=== PATIENT | female | born 1955 | race Caucasian/White ===

== ENCOUNTER 2019-07-12 21:21 | Inpatient (IN) | payer OTHER, MEDICARE ==
[~2019-07-12] VITALS: Ht 152.4 cm; Wt 115.7 kg
[2019-07-12] MEDS ORDERED: ONDANSETRON 4 MG/2 ML VIAL IV ONE (21:30)
[2019-07-12] MEDS ORDERED: IV NORMAL SALINE 1000 ML BAG IV ONE (21:30)
[2019-07-12] MEDS ORDERED: HYDROMORPHONE 1 MG/1 ML DISP.SYRIN IV ONE (21:30)
[2019-07-12] MEDS ORDERED: HYDROMORPHONE 1 MG/1 ML DISP.SYRIN ONE (21:45)
[2019-07-12] MEDS ORDERED: ONDANSETRON 4 MG/2 ML VIAL ONE (21:45)
[2019-07-12 21:47] LABS: BASOPHILS % (AUTO) 0.1 % (0.0-2.0); EOSINOPHILS % (AUTO) 0.1 % (0.0-7.0); HEMATOCRIT 52.9 % (31.2-41.9); HEMOGLOBIN 17.3 g/dL (10.9-14.3); LYMPHOCYTES # (AUTO) 0.5 K/uL (20.0-40.0); LYMPHOCYTES % (AUTO) 1.8 % (20.5-51.5); MEAN CORPUSCULAR HEMOGLOBIN 29.5 uug (24.7-32.8); MEAN CORPUSCULAR HGB CONC 33 g/dL (32.3-35.6); MONOCYTES # (AUTO) 0.5 K/uL (2.0-10.0); NEUTROPHILS # (AUTO) 25.8 K/uL (1.8-8.9); PLATELET COUNT (AUTO) 294 K/uL (179-408); RED BLOOD CELL COUNT(AUTO) 5.87 MIL/uL (3.63-4.92); WHITE BLOOD COUNT (AUTO) 26.8 K/uL (3.8-11.8)
[2019-07-12 21:54] LABS: CARBON DIOXIDE 24 mmol/L (21-32); CHLORIDE 102 mmol/L (98-107); CREATININE 1.3 mg/dL (0.6-1.3); GLUCOSE 167 mg/dL (74-106); POTASSIUM 3.6 mmol/L (3.5-5.1); UREA NITROGEN, BLOOD 14 mg/dL (7-18)
[2019-07-12 22:00] LABS: ALANINE AMINOTRANSFERASE 133 U/L (14-59); ALKALINE PHOSPHATASE 102 U/L (50-136); ASPARTATE AMINOTRANSFERASE 150 U/L (15-37); BILIRUBIN,DIRECT 1.5 mg/dL (0.0-0.2); BILIRUBIN,TOTAL 2.2 mg/dL (0.2-1.0); TOTAL PROTEIN, SERUM 8.2 g/dL (6.4-8.2)
[2019-07-12 22:16] LABS: LIPASE > 6000 U/L (73-393)
[2019-07-12] MEDS ORDERED: LEVOFLOXACIN 750 MG/D5W 150 ML PIGGYBACK IV ONE (22:30)
[2019-07-12] MEDS ORDERED: METRONIDAZOLE 500 MG/NS 100 ML PIGGYBACK IV ONE (22:30)
[2019-07-12] MEDS ORDERED: LEVOFLOXACIN 750MG/D5W 150 ML IV ONE (22:50)
[2019-07-12] MEDS ORDERED: METRONIDAZOLE 500 MG/NS 100ML 100 ML IV ONE (22:50)
[2019-07-13] MEDS ORDERED: IV NORMAL SALINE 1000 ML BAG IV ONE (00:15)
[2019-07-13] MEDS ORDERED: HYDROMORPHONE 1 MG/1 ML DISP.SYRIN IV ONE (00:30)
[2019-07-13] MEDS ORDERED: HYDROMORPHONE 1 MG/1 ML DISP.SYRIN ONE (00:46)
[2019-07-13] MEDS: ENOXAPARIN SODIUM 40 MG/0.4 ML DISP.SYRIN SQ SCH ×2 (03:00→09:33)
[2019-07-13] MEDS ORDERED: Z GUARD REMEDY PASTE 57 GM TUBE TOP PRN (03:00)
[2019-07-13] MEDS: IV NS 1000 ML 1,000 ML IV PRN ×2 (03:21→18:42)
[2019-07-13 04:00] VITALS: BP 149/89
[2019-07-13] MEDS ORDERED: MEROPENEM 1 G VIAL IV ONE (05:45)
[2019-07-13] MEDS ORDERED: MEROPENEM 1 G in IV NORMAL SALINE 100 ML IV SCH ×3 (06:00→18:00)
[2019-07-13 06:59] LABS: BASOPHILS % (AUTO) 0.1 % (0.0-2.0); HEMATOCRIT 49.5 % (31.2-41.9); HEMOGLOBIN 16.4 g/dL (10.9-14.3); LYMPHOCYTES # (AUTO) 0.5 K/uL (20.0-40.0); LYMPHOCYTES % (AUTO) 1.9 % (20.5-51.5); MEAN CORPUSCULAR HEMOGLOBIN 30.1 uug (24.7-32.8); MEAN CORPUSCULAR HGB CONC 33 g/dL (32.3-35.6); MEAN CORPUSCULAR VOLUME 90.9 fL (75.5-95.3); MONOCYTES # (AUTO) 0.7 K/uL (2.0-10.0); MONOCYTES % (AUTO) 2.4 % (0.0-11.0); NEUTROPHILS # (AUTO) 26.7 K/uL (1.8-8.9); NEUTROPHILS % (AUTO) 95.6 % (38.5-71.5); PLATELET COUNT (AUTO) 259 K/uL (179-408); RED BLOOD CELL COUNT(AUTO) 5.44 MIL/uL (3.63-4.92); WHITE BLOOD COUNT (AUTO) 27.9 K/uL (3.8-11.8)
[2019-07-13 07:42] LABS: ALANINE AMINOTRANSFERASE 95 U/L (14-59); ALKALINE PHOSPHATASE 71 U/L (50-136); ASPARTATE AMINOTRANSFERASE 84 U/L (15-37); BILIRUBIN,TOTAL 1.6 mg/dL (0.2-1.0); CARBON DIOXIDE 23 mmol/L (21-32); CHLORIDE 103 mmol/L (98-107); CHOLESTEROL 112 mg/dL (<200); CREATININE 1.2 mg/dL (0.6-1.3); GLUCOSE 164 mg/dL (74-106); HDL CHOLESTEROL 35 mg/dL (40-60); MAGNESIUM 1.6 mg/dL (1.8-2.4); PHOSPHOROUS 3.7 mg/dL (2.5-4.9); POTASSIUM 3.6 mmol/L (3.5-5.1); TOTAL PROTEIN, SERUM 7.1 g/dL (6.4-8.2); TRIGLYCERIDES 95 MG/DL (30-150); UREA NITROGEN, BLOOD 20 mg/dL (7-18)
[2019-07-13] MEDS: MORPHINE SULFATE 2 MG/1 ML DISP.SYRIN IV PRN ×2 (08:24→21:07)
[2019-07-13 08:50] LABS: LIPASE > 6000 U/L (73-393)
[2019-07-13] MEDS: MAGNESIUM SULFATE/D5W 100 ML IV SCH ×2 (09:54→11:31)
[2019-07-13 11:59] VITALS: BP 129/84
[2019-07-13] MEDS ORDERED: DEXTROSE 50% 50 ML DISP.SYRIN IV PRN (12:45)
[2019-07-13] MEDS: MEROPENEM 1 G in IV NORMAL SALINE 100 ML IV SCH ×2 (14:29→21:01)
[2019-07-13 15:33] VITALS: BP 115/73
[2019-07-13] MEDS: BLOOD SUGAR DIAGNOSTIC 1 EACH STRIP VI SCH ×2 (17:28→20:21)
[2019-07-13] MEDS: ALBUTEROL SULFATE 2.5 MG/3 ML NEBU NEB PRN (18:04)
[2019-07-13] MEDS: ONDANSETRON 4 MG/2 ML VIAL IV PRN (20:13)
[2019-07-13 20:19] VITALS: BP 115/80
[2019-07-13] MEDS: INSULIN REGULAR, HUMAN 300 UNIT/3 ML VIAL SQ PRN (20:25)
[2019-07-13 21:00] LABS: *BILIRUBIN,URIN 1+ (NEGATIVE); *BLOOD, URINE NEGATIVE (NEGATIVE); *CLARITY,URINE SLIGHTLY CLOUDY (CLEAR); *COLOR,URINE DARK YELLOW (YELLOW); *KETONES,URINE TRACE (NEGATIVE); LEUKOCYTE ESTERASE ,URINE NEGATIVE (NEGATIVE); NITRITE, URINE NEGATIVE (NEGATIVE); PH,URINE 5.5 (5.0-8.0); UGLUCOSE NEGATIVE (NEGATIVE)
[2019-07-13 21:14] LABS: RBC,URINE 0-3 /HPF (0-3); WBC,URINE 0-3 /HPF (0-3)
[2019-07-13 21:15] LABS: BACTERIA,URINE MODERATE /HPF (NONE SEEN); SQUAMOUS EPITHELIAL CELL,UR MANY /HPF (NONE SEEN)
[2019-07-14 00:46] VITALS: BP 128/79
[2019-07-14] MEDS: MORPHINE SULFATE 4 MG/1 ML DISP.SYRIN IV PRN ×4 (02:09→21:24)
[2019-07-14 04:00] VITALS: BP 120/92
[2019-07-14] MEDS: ALBUTEROL SULFATE 2.5 MG/3 ML NEBU NEB PRN ×2 (06:08→16:02)
[2019-07-14] MEDS: MEROPENEM 1 G in IV NORMAL SALINE 100 ML IV SCH ×3 (06:10→22:08)
[2019-07-14] MEDS: BLOOD SUGAR DIAGNOSTIC 1 EACH STRIP VI SCH ×4 (06:55→21:25)
[2019-07-14 07:08] LABS: BILIRUBIN,DIRECT 0.7 mg/dL (0.0-0.2); BILIRUBIN,TOTAL 1.3 mg/dL (0.2-1.0); CREATININE 0.9 mg/dL (0.6-1.3); MAGNESIUM 2.3 mg/dL (1.8-2.4); PHOSPHOROUS 2.8 mg/dL (2.5-4.9); POTASSIUM 3.7 mmol/L (3.5-5.1); TOTAL PROTEIN, SERUM 7.1 g/dL (6.4-8.2)
[2019-07-14 07:22] LABS: BASOPHILS # (AUTO) 0.1 K/uL (0.0-8.0); BASOPHILS % (AUTO) 0.4 % (0.0-2.0); EOSINOPHILS % (AUTO) 0.1 % (0.0-7.0); HEMATOCRIT 47.3 % (31.2-41.9); HEMOGLOBIN 15.7 g/dL (10.9-14.3); LYMPHOCYTES # (AUTO) 1.2 K/uL (20.0-40.0); MEAN CORPUSCULAR HEMOGLOBIN 30.1 uug (24.7-32.8); MEAN CORPUSCULAR HGB CONC 33 g/dL (32.3-35.6); MONOCYTES # (AUTO) 0.9 K/uL (2.0-10.0); NEUTROPHILS # (AUTO) 27.8 K/uL (1.8-8.9); NEUTROPHILS % (AUTO) 92.5 % (38.5-71.5); PLATELET COUNT (AUTO) 232 K/uL (179-408)
[2019-07-14 07:47] LABS: WHITE BLOOD COUNT (AUTO) 30.1 K/uL (3.8-11.8)
[2019-07-14] MEDS: ENOXAPARIN SODIUM 40 MG/0.4 ML DISP.SYRIN SQ SCH (08:57)
[2019-07-14 09:30] LABS: BAND % (MANUAL) 8 % (0-10); LYMPHOCYTES % (MANUAL) 6 % (20-40); MONOCYTES % (MANUAL) 3 % (2-10); NEUTROPHILS % (MANUAL) 83 % (42-75)
[2019-07-14] MEDS: IV NS 1000 ML 1,000 ML IV PRN (11:23)
[2019-07-14 11:50] VITALS: BP 128/93
[2019-07-14 15:16] VITALS: BP 148/96
[2019-07-14 20:45] VITALS: BP 141/91
[2019-07-14] MEDS: ONDANSETRON 4 MG/2 ML VIAL IV PRN (21:24)
[2019-07-15] VITALS: BP 135/82
[2019-07-15] MEDS: MORPHINE SULFATE 4 MG/1 ML DISP.SYRIN IV PRN ×4 (01:02→20:59)
[2019-07-15] MEDS: IV NS 1000 ML 1,000 ML IV PRN ×3 (02:20→21:01)
[2019-07-15] MEDS: ALBUTEROL SULFATE 2.5 MG/3 ML NEBU NEB PRN ×2 (03:00→18:02)
[2019-07-15 04:00] VITALS: BP 150/92
[2019-07-15] MEDS: MEROPENEM 1 G in IV NORMAL SALINE 100 ML IV SCH ×3 (05:21→21:10)
[2019-07-15] MEDS: BLOOD SUGAR DIAGNOSTIC 1 EACH STRIP VI SCH ×4 (06:41→20:43)
[2019-07-15] MEDS: ENOXAPARIN SODIUM 40 MG/0.4 ML DISP.SYRIN SQ SCH (08:08)
[2019-07-15 08:31] LABS: BASOPHILS # (AUTO) 0.1 K/uL (0.0-8.0); BASOPHILS % (AUTO) 0.5 % (0.0-2.0); EOSINOPHILS # (AUTO) 0.1 K/uL (0.0-0.7); EOSINOPHILS % (AUTO) 0.3 % (0.0-7.0); HEMATOCRIT 40.2 % (31.2-41.9); HEMOGLOBIN 13.3 g/dL (10.9-14.3); LYMPHOCYTES # (AUTO) 1.3 K/uL (20.0-40.0); LYMPHOCYTES % (AUTO) 5.1 % (20.5-51.5); MEAN CORPUSCULAR HEMOGLOBIN 29.9 uug (24.7-32.8); MEAN CORPUSCULAR HGB CONC 33 g/dL (32.3-35.6); MEAN CORPUSCULAR VOLUME 90.4 fL (75.5-95.3); MONOCYTES # (AUTO) 0.8 K/uL (2.0-10.0); NEUTROPHILS # (AUTO) 23.9 K/uL (1.8-8.9); NEUTROPHILS % (AUTO) 91.1 % (38.5-71.5); PLATELET COUNT (AUTO) 205 K/uL (179-408); RED BLOOD CELL COUNT(AUTO) 4.44 MIL/uL (3.63-4.92); WHITE BLOOD COUNT (AUTO) 26.2 K/uL (3.8-11.8)
[2019-07-15 08:48] LABS: CREATININE 0.8 mg/dL (0.6-1.3); MAGNESIUM 2.3 mg/dL (1.8-2.4); PHOSPHOROUS 1.7 mg/dL (2.5-4.9)
[2019-07-15 09:47] LABS: BAND % (MANUAL) 5 % (0-10); LYMPHOCYTES % (MANUAL) 7 % (20-40); MONOCYTES % (MANUAL) 6 % (2-10); NEUTROPHILS % (MANUAL) 82 % (42-75)
[2019-07-15] MEDS: POTASSIUM PHOSPHATE MM 5 MMOL in IV DEXTROSE 5% 100 ML IV SCH ×2 (11:37→14:10)
[2019-07-15 11:46] VITALS: BP 159/97
[2019-07-15] MEDS ORDERED: BISACODYL 10 MG SUPP.RECT RC PRN (12:45)
[2019-07-15] MEDS ORDERED: MAGNESIUM HYDROXIDE 30 ML LIQUID UDC PO PRN (12:45)
[2019-07-15] MEDS: methylPREDNISolone SOD SUCC 40 MG/ML VIAL IV SCH ×2 (13:12→20:43)
[2019-07-15 16:20] VITALS: BP 158/87
[2019-07-15] MEDS ORDERED: SWABABLE VALVE TRANSFER SET EA MC ONE (16:57)
[2019-07-15] MEDS ORDERED: IV NORMAL SALINE 250 ML IV ONE (16:58)
[2019-07-15] MEDS ORDERED: IOHEXOL 350 100 ML INFUS..BTL ONE (16:58)
[2019-07-15] MEDS ORDERED: BENA5TAB5 PO (17:16)
[2019-07-15] MEDS ORDERED: HYDR25TA4 PO (17:17)
[2019-07-15] MEDS ORDERED: ALLO300T2 PO (17:18)
[2019-07-15] MEDS ORDERED: MONT10TA22 PO (17:18)
[2019-07-15] MEDS ORDERED: PARO20TA7 PO (17:19)
[2019-07-15] MEDS ORDERED: METF-494 PO (17:20)
[2019-07-15] MEDS ORDERED: PANT40TA4 PO (17:20)
[2019-07-15] MEDS ORDERED: TIOT18CA3 IH (17:22)
[2019-07-15] MEDS ORDERED: FLUT1DIS29 IH (17:23)
[2019-07-15 17:33] LABS: BILIRUBIN,DIRECT 0.5 mg/dL (0.0-0.2); BILIRUBIN,TOTAL 0.9 mg/dL (0.2-1.0); TOTAL PROTEIN, SERUM 7.1 g/dL (6.4-8.2)
[2019-07-15 17:34] LABS: BILIRUBIN,TOTAL 0.9 mg/dL (0.2-1.0)
[2019-07-15 17:38] LABS: BILIRUBIN,DIRECT 0.5 mg/dL (0.0-0.2)
[2019-07-15 20:00] VITALS: BP 164/97
[2019-07-15] MEDS: DOCUSATE SODIUM 100 MG CAPSULE PO SCH (20:44)
[2019-07-15] MEDS: CLONIDINE HCL 0.1 MG TABLET PO PRN (20:45)
[2019-07-15] MEDS: INSULIN REGULAR, HUMAN 300 UNIT/3 ML VIAL SQ PRN (20:46)
[2019-07-15 22:00] VITALS: BP 136/88
[2019-07-16] VITALS: BP 179/105
[2019-07-16 01:00] VITALS: BP 153/93
[2019-07-16 04:00] VITALS: BP 155/99
[2019-07-16] MEDS: IV NS 1000 ML 1,000 ML IV PRN (05:07)
[2019-07-16] MEDS: MEROPENEM 1 G in IV NORMAL SALINE 100 ML IV SCH ×3 (05:07→21:10)
[2019-07-16] MEDS: ALBUTEROL SULFATE 2.5 MG/3 ML NEBU NEB PRN (06:20)
[2019-07-16] MEDS: BLOOD SUGAR DIAGNOSTIC 1 EACH STRIP VI SCH ×4 (06:25→20:58)
[2019-07-16 06:35] LABS: BASOPHILS % (AUTO) 0.1 % (0.0-2.0); HEMATOCRIT 37.9 % (31.2-41.9); HEMOGLOBIN 12.3 g/dL (10.9-14.3); LYMPHOCYTES # (AUTO) 1.1 K/uL (20.0-40.0); LYMPHOCYTES % (AUTO) 4.5 % (20.5-51.5); MEAN CORPUSCULAR HEMOGLOBIN 29.1 uug (24.7-32.8); MEAN CORPUSCULAR HGB CONC 33 g/dL (32.3-35.6); MEAN CORPUSCULAR VOLUME 89.4 fL (75.5-95.3); MONOCYTES # (AUTO) 0.6 K/uL (2.0-10.0); MONOCYTES % (AUTO) 2.4 % (0.0-11.0); NEUTROPHILS # (AUTO) 22.3 K/uL (1.8-8.9); PLATELET COUNT (AUTO) 227 K/uL (179-408); RED BLOOD CELL COUNT(AUTO) 4.24 MIL/uL (3.63-4.92)
[2019-07-16 06:46] LABS: CREATININE 0.6 mg/dL (0.6-1.3); MAGNESIUM 2.3 mg/dL (1.8-2.4); PHOSPHOROUS 1.9 mg/dL (2.5-4.9); POTASSIUM 3.9 mmol/L (3.5-5.1)
[2019-07-16 07:33] LABS: BAND % (MANUAL) 7 % (0-10); LYMPHOCYTES % (MANUAL) 5 % (20-40); MONOCYTES % (MANUAL) 7 % (2-10)
[2019-07-16 07:34] LABS: NEUTROPHILS % (MANUAL) 81 % (42-75)
[2019-07-16] MEDS: methylPREDNISolone SOD SUCC 40 MG/ML VIAL IV SCH ×2 (08:45→21:00)
[2019-07-16] MEDS: INSULIN REGULAR, HUMAN 300 UNIT/3 ML VIAL SQ PRN ×4 (08:54→20:58)
[2019-07-16] MEDS: ENOXAPARIN SODIUM 40 MG/0.4 ML DISP.SYRIN SQ SCH (08:55)
[2019-07-16] MEDS: DOCUSATE SODIUM 100 MG CAPSULE PO SCH ×2 (09:00→20:52)
[2019-07-16] MEDS: CLONIDINE HCL 0.1 MG TABLET PO PRN (11:43)
[2019-07-16 11:52] VITALS: BP 171/96
[2019-07-16 12:06] LABS: BILIRUBIN,DIRECT 0.2 mg/dL (0.0-0.2); BILIRUBIN,TOTAL 0.4 mg/dL (0.2-1.0)
[2019-07-16] MEDS ORDERED: NEUTRA PHOS PACKET PO ONE (15:45)
[2019-07-16] MEDS: ALLOPURINOL 300 MG TABLET PO SCH (16:06)
[2019-07-16] MEDS: PAROXETINE HCL 20 MG TABLET PO SCH (16:06)
[2019-07-16] MEDS: METFORMIN XR 500 MG TAB.SR.24H PO SCH (16:06)
[2019-07-16] MEDS: BENAZEPRIL HCL 5 MG TABLET PO SCH (16:07)
[2019-07-16] MEDS: HYDROCHLOROTHIAZIDE 25 MG TABLET PO SCH (16:07)
[2019-07-16] MEDS: MORPHINE SULFATE 4 MG/1 ML DISP.SYRIN IV PRN ×2 (16:09→22:09)
[2019-07-16] MEDS: WIXELA IH SCH (17:35)
[2019-07-16 19:30] VITALS: BP 122/99
[2019-07-17] MEDS: MORPHINE SULFATE 4 MG/1 ML DISP.SYRIN IV PRN ×3 (01:47→20:24)
[2019-07-17] MEDS: IV NS 1000 ML 1,000 ML IV PRN ×3 (05:12→23:39)
[2019-07-17] MEDS: MEROPENEM 1 G in IV NORMAL SALINE 100 ML IV SCH ×3 (05:13→21:42)
[2019-07-17] MEDS: CLONIDINE HCL 0.1 MG TABLET PO PRN ×2 (05:17→15:53)
[2019-07-17 05:29] VITALS: BP 161/89
[2019-07-17] MEDS: ALBUTEROL SULFATE 2.5 MG/3 ML NEBU NEB PRN (05:38)
[2019-07-17] MEDS: BLOOD SUGAR DIAGNOSTIC 1 EACH STRIP VI SCH ×4 (06:33→20:33)
[2019-07-17 07:09] LABS: BASOPHILS # (AUTO) 0.1 K/uL (0.0-8.0); BASOPHILS % (AUTO) 0.4 % (0.0-2.0); HEMATOCRIT 36.9 % (31.2-41.9); HEMOGLOBIN 12.1 g/dL (10.9-14.3); LYMPHOCYTES # (AUTO) 1.7 K/uL (20.0-40.0); LYMPHOCYTES % (AUTO) 7.6 % (20.5-51.5); MEAN CORPUSCULAR HEMOGLOBIN 29.4 uug (24.7-32.8); MEAN CORPUSCULAR HGB CONC 33 g/dL (32.3-35.6); MEAN CORPUSCULAR VOLUME 89.2 fL (75.5-95.3); MONOCYTES # (AUTO) 1.2 K/uL (2.0-10.0); MONOCYTES % (AUTO) 5.2 % (0.0-11.0); NEUTROPHILS # (AUTO) 19.9 K/uL (1.8-8.9); NEUTROPHILS % (AUTO) 86.8 % (38.5-71.5); PLATELET COUNT (AUTO) 247 K/uL (179-408); RED BLOOD CELL COUNT(AUTO) 4.13 MIL/uL (3.63-4.92); WHITE BLOOD COUNT (AUTO) 22.9 K/uL (3.8-11.8)
[2019-07-17 07:16] LABS: CREATININE 0.6 mg/dL (0.6-1.3); POTASSIUM 3.7 mmol/L (3.5-5.1)
[2019-07-17 07:21] LABS: BILIRUBIN,TOTAL 0.4 mg/dL (0.2-1.0); MAGNESIUM 2.2 mg/dL (1.8-2.4); PHOSPHOROUS 2.8 mg/dL (2.5-4.9); TOTAL PROTEIN, SERUM 6.4 g/dL (6.4-8.2)
[2019-07-17 07:42] LABS: BAND % (MANUAL) 2 % (0-10); LYMPHOCYTES % (MANUAL) 7 % (20-40); MONOCYTES % (MANUAL) 5 % (2-10); NEUTROPHILS % (MANUAL) 86 % (42-75)
[2019-07-17] MEDS: INSULIN REGULAR, HUMAN 300 UNIT/3 ML VIAL SQ PRN ×2 (08:11→17:05)
[2019-07-17] MEDS: DOCUSATE SODIUM 100 MG CAPSULE PO SCH ×2 (09:00→21:00)
[2019-07-17] MEDS: WIXELA IH SCH ×2 (09:43→17:03)
[2019-07-17] MEDS: ENOXAPARIN SODIUM 40 MG/0.4 ML DISP.SYRIN SQ SCH (09:45)
[2019-07-17] MEDS: MONTELUKAST SODIUM 10 MG TABLET PO SCH (09:46)
[2019-07-17] MEDS: METFORMIN XR 500 MG TAB.SR.24H PO SCH (09:46)
[2019-07-17] MEDS: PANTOPRAZOLE SODIUM 40 MG TABLET.DR PO SCH (09:46)
[2019-07-17] MEDS: ALLOPURINOL 300 MG TABLET PO SCH (09:52)
[2019-07-17] MEDS: BENAZEPRIL HCL 5 MG TABLET PO SCH (09:52)
[2019-07-17] MEDS: HYDROCHLOROTHIAZIDE 25 MG TABLET PO SCH (09:53)
[2019-07-17] MEDS: PAROXETINE HCL 20 MG TABLET PO SCH (09:53)
[2019-07-17] MEDS: methylPREDNISolone SOD SUCC 40 MG/ML VIAL IV SCH ×2 (09:55→20:28)
[2019-07-17 12:19] VITALS: BP 154/98
[2019-07-17 15:55] VITALS: BP 165/104
[2019-07-17 21:47] VITALS: BP 150/83
[2019-07-18] MEDS: MORPHINE SULFATE 4 MG/1 ML DISP.SYRIN IV PRN (01:55)
[2019-07-18] MEDS: ALBUTEROL SULFATE 2.5 MG/3 ML NEBU NEB PRN (05:10)
[2019-07-18 05:54] VITALS: BP 145/87
[2019-07-18] MEDS: MEROPENEM 1 G in IV NORMAL SALINE 100 ML IV SCH ×2 (06:40→14:32)
[2019-07-18] MEDS: BLOOD SUGAR DIAGNOSTIC 1 EACH STRIP VI SCH ×4 (06:48→21:04)
[2019-07-18 07:11] LABS: CARBON DIOXIDE 29 mmol/L (21-32); CHLORIDE 101 mmol/L (98-107); CREATININE 0.4 mg/dL (0.6-1.3); GLUCOSE 135 mg/dL (74-106); POTASSIUM 3.5 mmol/L (3.5-5.1); UREA NITROGEN, BLOOD 13 mg/dL (7-18)
[2019-07-18 07:17] LABS: ALANINE AMINOTRANSFERASE 38 U/L (14-59); ALKALINE PHOSPHATASE 89 U/L (50-136); ASPARTATE AMINOTRANSFERASE 23 U/L (15-37); BILIRUBIN,DIRECT 0.2 mg/dL (0.0-0.2); BILIRUBIN,TOTAL 0.4 mg/dL (0.2-1.0); PHOSPHOROUS 3.3 mg/dL (2.5-4.9); TOTAL PROTEIN, SERUM 6.4 g/dL (6.4-8.2)
[2019-07-18 07:54] LABS: BASOPHILS % (AUTO) 0.1 % (0.0-2.0); EOSINOPHILS % (AUTO) 0.1 % (0.0-7.0); HEMATOCRIT 38.5 % (31.2-41.9); HEMOGLOBIN 12.3 g/dL (10.9-14.3); LYMPHOCYTES # (AUTO) 1.6 K/uL (20.0-40.0); LYMPHOCYTES % (AUTO) 7.6 % (20.5-51.5); MEAN CORPUSCULAR HEMOGLOBIN 28.9 uug (24.7-32.8); MEAN CORPUSCULAR HGB CONC 32 g/dL (32.3-35.6); MEAN CORPUSCULAR VOLUME 90.3 fL (75.5-95.3); MONOCYTES # (AUTO) 1.2 K/uL (2.0-10.0); MONOCYTES % (AUTO) 5.7 % (0.0-11.0); NEUTROPHILS # (AUTO) 18.7 K/uL (1.8-8.9); NEUTROPHILS % (AUTO) 86.5 % (38.5-71.5); PLATELET COUNT (AUTO) 220 K/uL (179-408); RED BLOOD CELL COUNT(AUTO) 4.26 MIL/uL (3.63-4.92); WHITE BLOOD COUNT (AUTO) 21.6 K/uL (3.8-11.8)
[2019-07-18] MEDS: DOCUSATE SODIUM 100 MG CAPSULE PO SCH ×2 (09:00→20:20)
[2019-07-18] MEDS: WIXELA IH SCH ×2 (09:40→17:06)
[2019-07-18] MEDS: PANTOPRAZOLE SODIUM 40 MG TABLET.DR PO SCH (09:43)
[2019-07-18] MEDS: ALLOPURINOL 300 MG TABLET PO SCH (09:43)
[2019-07-18] MEDS: MONTELUKAST SODIUM 10 MG TABLET PO SCH (09:43)
[2019-07-18] MEDS: PAROXETINE HCL 20 MG TABLET PO SCH (09:43)
[2019-07-18] MEDS: methylPREDNISolone SOD SUCC 40 MG/ML VIAL IV SCH ×2 (09:44→20:47)
[2019-07-18 09:46] LABS: BAND % (MANUAL) 4 % (0-10); LYMPHOCYTES % (MANUAL) 7 % (20-40); METAMYELOCYTES % 1 % (0-1); NEUTROPHILS % (MANUAL) 80 % (42-75)
[2019-07-18] MEDS: ENOXAPARIN SODIUM 40 MG/0.4 ML DISP.SYRIN SQ SCH (09:46)
[2019-07-18] MEDS: HYDROCHLOROTHIAZIDE 25 MG TABLET PO SCH (09:47)
[2019-07-18] MEDS: BENAZEPRIL HCL 5 MG TABLET PO SCH (09:47)
[2019-07-18 09:48] LABS: MONOCYTES % (MANUAL) 3 % (2-10); MYELOCYTES % 5 % (0-0)
[2019-07-18] MEDS: METFORMIN XR 500 MG TAB.SR.24H PO SCH (09:49)
[2019-07-18] MEDS: IV NS 1000 ML 1,000 ML IV PRN ×2 (09:59→20:26)
[2019-07-18 11:55] VITALS: BP 166/92
[2019-07-18 16:13] VITALS: BP 152/92
[2019-07-18] MEDS: INSULIN REGULAR, HUMAN 300 UNIT/3 ML VIAL SQ PRN (17:08)
[2019-07-18 20:01] VITALS: BP 153/78
[2019-07-19] MEDS ORDERED: ALPRAZOLAM 0.5 MG TABLET PO ONE (01:30)
[2019-07-19] MEDS: CLONIDINE HCL 0.1 MG TABLET PO PRN (04:37)
[2019-07-19 05:11] VITALS: BP 153/102
[2019-07-19] MEDS: IV NS 1000 ML 1,000 ML IV PRN (05:26)
[2019-07-19 06:24] LABS: HEMATOCRIT 39.6 % (31.2-41.9); HEMOGLOBIN 13.1 g/dL (10.9-14.3); LYMPHOCYTES # (AUTO) 1.7 K/uL (20.0-40.0); LYMPHOCYTES % (AUTO) 7.8 % (20.5-51.5); MEAN CORPUSCULAR HEMOGLOBIN 29.3 uug (24.7-32.8); MEAN CORPUSCULAR HGB CONC 33 g/dL (32.3-35.6); MEAN CORPUSCULAR VOLUME 88.7 fL (75.5-95.3); MONOCYTES # (AUTO) 1.1 K/uL (2.0-10.0); MONOCYTES % (AUTO) 5.1 % (0.0-11.0); NEUTROPHILS # (AUTO) 18.8 K/uL (1.8-8.9); NEUTROPHILS % (AUTO) 87.1 % (38.5-71.5); PLATELET COUNT (AUTO) 253 K/uL (179-408); RED BLOOD CELL COUNT(AUTO) 4.47 MIL/uL (3.63-4.92); WHITE BLOOD COUNT (AUTO) 21.6 K/uL (3.8-11.8)
[2019-07-19] MEDS: BLOOD SUGAR DIAGNOSTIC 1 EACH STRIP VI SCH ×2 (06:32→12:03)
[2019-07-19 06:38] LABS: CREATININE 0.6 mg/dL (0.6-1.3); PHOSPHOROUS 3.7 mg/dL (2.5-4.9); POTASSIUM 3.6 mmol/L (3.5-5.1)
[2019-07-19] MEDS: WIXELA IH SCH (08:27)
[2019-07-19] MEDS: ENOXAPARIN SODIUM 40 MG/0.4 ML DISP.SYRIN SQ SCH (08:28)
[2019-07-19] MEDS: DOCUSATE SODIUM 100 MG CAPSULE PO SCH ×2 (08:28→08:40)
[2019-07-19] MEDS: MONTELUKAST SODIUM 10 MG TABLET PO SCH (08:28)
[2019-07-19] MEDS: PAROXETINE HCL 20 MG TABLET PO SCH (08:29)
[2019-07-19] MEDS: PANTOPRAZOLE SODIUM 40 MG TABLET.DR PO SCH (08:29)
[2019-07-19] MEDS: ALLOPURINOL 300 MG TABLET PO SCH (08:29)
[2019-07-19] MEDS: BENAZEPRIL HCL 5 MG TABLET PO SCH (08:29)
[2019-07-19] MEDS: METFORMIN XR 500 MG TAB.SR.24H PO SCH (08:30)
[2019-07-19] MEDS: HYDROCHLOROTHIAZIDE 25 MG TABLET PO SCH (08:30)
[2019-07-19] MEDS: methylPREDNISolone SOD SUCC 40 MG/ML VIAL IV SCH ×2 (08:30→08:40)
[2019-07-19 10:36] LABS: BAND % (MANUAL) 4 % (0-10); NEUTROPHILS % (MANUAL) 84 % (42-75)
[2019-07-19 10:37] LABS: LYMPHOCYTES % (MANUAL) 7 % (20-40); MONOCYTES % (MANUAL) 5 % (2-10)
[2019-07-19 11:39] VITALS: BP 169/104
[2019-07-19] MEDS: INSULIN REGULAR, HUMAN 300 UNIT/3 ML VIAL SQ PRN (12:04)
[2019-07-19] MEDS ORDERED: METH4TAB3 PO (12:35)
[2019-07-19] MEDS ORDERED: DOCU100C36 PO (12:35)
== END 2019-07-19 15:50 | disposition home or self-care (01) | DRG 439 ==
LOC: ER 21:23 → TELE3 07-13 01:22 → MEDSURG3 07-16 14:15
PROVIDERS: ADMIT Nurse Practitioner Acute Care; ATTEND Nurse Practitioner Acute Care
PROC: 05HD33Z Insertion of Infusion Device into Right Cephalic Vein, Percutaneous Approach (ICD-10-PCS; principal; 2019-07-13)
DX: K85.10 Biliary acute pancreatitis without necrosis or infection (principal); E44.0 Moderate protein-calorie malnutrition; R65.10 Systemic inflammatory response syndrome (SIRS) of non-infectious origin without acute organ dysfunction; Z68.42 Body mass index [BMI] 45.0-49.9, adult; E66.01 Morbid (severe) obesity due to excess calories; E11.65 Type 2 diabetes mellitus with hyperglycemia; J45.909 Unspecified asthma, uncomplicated; Z96.643 Presence of artificial hip joint, bilateral; Z90.710 Acquired absence of both cervix and uterus; K76.0 Fatty (change of) liver, not elsewhere classified; I10 Essential (primary) hypertension; M12.88 Other specific arthropathies, not elsewhere classified, other specified site; F12.90 Cannabis use, unspecified, uncomplicated; K82.8 Other specified diseases of gallbladder
CPT/HCPCS: 36415; 70030-TC; 71045; 78445; 83605; 83615; 83690; 83735; 84100; 85025; 85730; 87040; 87086; 93005; 94640; 94664; A4663; A9537; G0378; J1170; J1650; J1815; J1956; J2185; J2270; J2405; J2920; J3475; J3490; J7030; J7040; J7050; J7060; Q9967